=== PATIENT | male | born 1985 | race Caucasian/White ===

== ENCOUNTER 2019-11-11 13:09 | Emergency (ER) | payer SELFPAY ==
[2019-11-11 13:22] VITALS: BP 127/85; PULSE 77; RESP 16; TEMP 36.4; O2SAT 98; BMI 28.1
== END 2019-11-11 15:20 | disposition left against medical advice (07) ==
PROVIDERS: Emergency Provider Nurse Practitioner Family
DX: Z53.21 Procedure and treatment not carried out due to patient leaving prior to being seen by health care provider (principal)
CPT/HCPCS: 99281

== ENCOUNTER 2019-11-28 14:17 | Emergency (ER) | payer SELFPAY ==
[2019-11-28 14:27] VITALS: BP 145/109; PULSE 84; RESP 20; TEMP 36.7; O2SAT 94; BMI 32.3
--- NOTE | 2019-11-28 14:37 | W.ED.BACK ---
HPI - Back Pain/Injury General: Chief Complaint: Back Pain/Injury Stated Complaint: lower back pain Time Seen by Provider: 11/28/19 14:21 History of Present Illness: HPI Narrative: Patient is a 34-year-old male who comes to the ED with lower back pain that started 3 days ago. Patient denies any injury, trauma or accident to cause lower back pain. Patient was seen 2 days ago at [facility] and given a shot of a muscle relaxer and Toradol for pain. Patient states he still having lower back pain. Pain is described as being across the entire lower back and pain will radiate down left leg and into calf. He rates the pain a 10 out of 10. Denies any numbness or loss of sensation in the pelvic region, bladder or bowel incontinence. Associated symptoms: Deny abdominal pain, chills, dysuria, fatigue, fever(s), hematuria, nausea or vomiting Review of Systems Const: Denies: fever(s), chills or fatigue Eyes: Denies: change in vision or eye discomfort ENMT: Denies: throat pain, odynophagia, nasal discharge or nasal congestion Card: Denies: chest pain, palpitations, edema, swelling of feet/ankles, dyspnea on exertion or orthopnea Resp: Denies: dyspnea, productive cough or non-productive cough GI: Denies: abdominal pain, nausea, vomiting, diarrhea, constipation or hematochezia : Denies: flank pain, difficulty urinating, dysuria or hematuria Musc: Reports: back pain; Denies: neck pain or extremity swelling Skin/Breast: Denies: rash or new lesions Neuro: Denies: headache(s), numbness in extremities or weakness in extremities [facility] ED PFSH: Social History Smoking and tobacco status: never smoked Alcohol intake: never Physical Exam Const: COMMON NORMALS: patient oriented x3 HENMT: COMMON NORMALS: normocephalic HEAD & SCALP: normocephalic MOUTH: Normal oral and palatal mucosa present THROAT: posterior oropharynx normal and uvula midline Neck/C-Spine: COMMON NORMALS: supple GENERAL: Yes normal visual inspection Resp: COMMON NORMALS: normal respiratory effort, No retractions, No use of accessory muscles and clear to auscultation bilaterally AUSCULTATION: clear to auscultation bilaterally Cardio: COMMON NORMALS: regular rate, regular rhythm, S1 normal heart sound present, S2 normal heart sound present, No gallops present (Cardio), No clicks present (Cardio), No murmurs present (Cardio) and Peripheral pulses 2+ throughout RATE: regular rate RHYTHM: regular rhythm HEART SOUNDS: S1 normal heart sound present and S2 normal heart sound present PERIPHERAL PULSES: Peripheral pulses 2+ throughout GI: COMMON NORMALS: Normal to inspection, nondistended, normoactive bowel sounds present, Soft to palpation, non-tender and no masses PALPATION: Yes Soft to palpation : COMMON NORMALS: Yes no CVA tenderness BLADDER/KIDNEY EXAM: Yes no CVA tenderness Back/Pelvis: COMMON NORMALS: no CVA tenderness LUMBAR SPINE/LOWER BACK: Yes ROM limited (due to pain), Yes paraspinal muscle tenderness and Yes straight leg raise positive left OTHER: Patient's lower back muscles were hard and tense upon palpation. Extremity: COMMON NORMALS: normal to inspection and no pedal edema Neuro: COMMON NORMALS: patient oriented x3 and moves all extremities Skin: COMMON NORMALS: no rashes or lesions noted GENERAL SKIN EXAM: no rashes or lesions noted and dry skin Course Vital Signs: Vital signs: Vital Signs Temperature 98.0 F 11/28/19 14:27 Pulse Rate 70 11/28/19 15:47 Respiratory Rate 15 11/28/19 15:47 Blood Pressure 145/75 11/28/19 15:47 Pulse Oximetry 94 11/28/19 14:27 MDM - Back Pain/Injury MDM Narrative: Medical decision making narrative: pt is a 34 y/o male that comes to the ED with non traumatic Lumbar pain with pain radiating down into left leg. pt was given hydrocodone, prednisone and norflex while here in the ED. He was discharged with Lumbar radiculopathy and given a prescription for robaxin and medrol dose sonny. He was told to take ibuprofen as well for pain and inflammation. Order was placed with case management for a PCP referral. Pt understood and agreed with plan. Discharge Plan Discharge Patient Disposition: Home, Self-Care Clinical Impression: Lumbar radiculopathy Condition: Stable Prescriptions: New methocarbamol 750 mg tablet 750 mg PO Q8H Qty: 20 RF: 0 Medrol (Sonny) 4 mg tablets,dose pack See Rx Instructions .ROUTE .COMPLEX Qty: 21 RF: 0 ibuprofen 800 mg tablet 800 mg PO Q8H Qty: 30 RF: 0 No Action No Known Home Medications RF: 0 Discharge Orders: Discharge Order (Routine); Ordered 11/28/19 Ordered By: Kyler Velez Discharge Diet: Regular Discharge Activity: Increase activity as tolerated Patient Instructions: Acute Low Back Pain (ED), Lumbar Radiculopathy (ED) Activity Restrictions/Additional Instructions: To home and rest and apply cold pack or heat on lower back to help with symptoms. Stretch and massage lower back muscles out daily. Take full course of oral steroid as prescribed. Take muscle relaxer (methocarbamol) at night to help with pain and comfort while sleeping. Muscle relaxer can potentially cause some drowsiness so use caution if using it during the day. Take ibuprofen 800 mg 3 times a day to help with pain and inflammation. Case management or a primary care provider office should be contacting you within the next week to set up an appointment. You can always return to ED for reevaluation if symptoms worsen. 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
[2019-11-28] MEDS: predniSONE 20 mg Tablet 60 MG PO (15:23)
[2019-11-28] MEDS: orphenadrine 30 mg/mL Inj 2 mL 60 MG IM (15:23)
[2019-11-28] MEDS: HYDROcodone-acetaminophen 7.5-325 mg Tablet 1 TAB PO (15:24)
[2019-11-28 15:47] VITALS: BP 145/75; PULSE 70; RESP 15
--- NOTE | 2019-12-01 11:15 | DCPLANNER ---
manager custom had message to speak with patient about getting established with a primary care physician. manager custom called patient, he stated that he would like to be established with Agata in [place]. manager custom called the [facility] is [place], a follow up appointment is scheduled for Friday, December 06, 2019 at 2:00 with COMMERCIAL SINGERJuliann. manager custom called patient and informed patient of the scheduled appointment.
--- NOTE | 2019-12-28 13:40 | DCPLANNER ---
Patient did attend appointment scheduled for 12.03.19 with Agata in [place].
== END 2019-11-28 15:48 | disposition home or self-care (01) ==
PROVIDERS: Emergency Provider Physician Assistant
DX: M54.16 Radiculopathy, lumbar region (principal)
CPT/HCPCS: 12345; 96372; 99281; 99283; J2360; J7512

== ENCOUNTER 2020-01-12 19:13 | Emergency (ER) | payer SELFPAY ==
[2020-01-12 19:18] VITALS: BP 148/98; PULSE 82; RESP 18; TEMP 36.8; O2SAT 98; BMI 32.8
--- NOTE | 2020-01-12 20:31 | XRR_ITS ---
PROCEDURE INFORMATION: Exam: XR Spine, 1 view; Thoracic Exam date and time: 01/13/2020 9:54 AM Age: 34 years old Clinical indication: Patient status: Conscious; Pain: Outpatient Phlebotomist palpated a cyst on left lower back. C/O severe back pain; Patient HX: C/O severe back pain. Outpatient Phlebotomist found a cyst on back. Cannot lay on side for lateral views TECHNIQUE: Imaging protocol: XR of the spine, 1 view. Exam focused on the thoracic spine COMPARISON: No relevant prior studies available. FINDINGS: Vertebrae: Single anterior posterior view of the thoracic spine appears grossly normal on the submitted view. Lateral view not obtained. Soft tissues: Normal. XR/XR thoracic spine 1V [id number] IMPRESSION: Single anterior posterior view of the thoracic spine appears grossly normal on the submitted view. Lateral view not obtained.
--- NOTE | 2020-01-12 20:31 | XRR_ITS ---
PROCEDURE INFORMATION: Exam: XR Spine, 1 view; Lumbar Exam date and time: 01/13/2020 9:55 AM Age: 34 years old Clinical indication: Patient status: Conscious; Pain: Severe back pain-cyst found on back by crnp; Patient HX: Severe back pain x 48 hours. 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 Cannot lay on side for lateral views TECHNIQUE: Imaging protocol: XR of the spine, 1 view. Exam focused on the lumbar spine. COMPARISON: No relevant prior studies available. FINDINGS: Vertebrae: Single anterior posterior view of the lumbar spine. Grossly normal. Soft tissues: Normal. XR/XR lumbar spine 1V [id number] IMPRESSION: Single anterior posterior view of the lumbar spine. Grossly normal. Lateral view not obtained.
--- NOTE | 2020-01-12 21:07 | W.ED.BACK ---
HPI - Back Pain/Injury General: Chief Complaint: Back Pain/Injury Stated Complaint: back pain/cyst Time Seen by Provider: 01/12/20 20:55 Source: patient and family History of Present Illness: HPI Narrative: 34-year-old male complains of severe back pain for the last 48 hours, this is different from his usual back pain that he sees a physical therapist for. He went to his nurse practitioner today and she palpated a cyst on his left lower back and was sent to the emergency department. He has not had any spinal taps or injections in or near his back in the last year. Denies using IV drugs. Denies known history of MRSA. Complains of severe pain especially in certain positions dull and keeps him awake at night 10 out of 10 nothing seems to help. He does not think he is had a fever but he is sweating because the pain is so bad. No respiratory or GI symptoms. Timing: constant Associated symptoms: Deny abdominal pain, chills, change in bowel habits, fever(s), nausea or vomiting Review of Systems General: Reports: 10 or more systems reviewed and unremarkable except in HPI and below Const: Denies: fever(s) or chills Eyes: Denies: change in vision ENMT: Denies: throat pain Card: Denies: chest pain Resp: Denies: dyspnea GI: Denies: abdominal pain, nausea, vomiting or change in bowel habits Musc: Reports: back pain; Denies: muscle weakness Skin/Breast: Reports: other (subcutaneous cyst on lower back); Denies: rash Neuro: Denies: headache(s) Psych: Denies: hopelessness or suicidal ideation Endo: Denies: polyuria Jamel/Lymph: Denies: easy bruising or easy bleeding All/Imm: Denies: urticaria PFS ED PFSH: Social History Smoking and tobacco status: never smoked Alcohol intake: never Physical Exam Const: COMMON NORMALS: patient oriented x3, alert and well nourished GENERAL APPEARANCE: other (appears uncomfortable) OTHER: forehead diaphoretic HENMT: COMMON NORMALS: normocephalic and Normal external nose present HEAD & SCALP: normocephalic NOSE: Normal external nose present MOUTH: no trismus Eye: COMMON NORMALS: EOMs intact bilaterally and conjunctivae normal CONJUNCTIVA: Yes conjunctivae normal Neck/C-Spine: COMMON NORMALS: full ROM, no lymphadenopathy and supple CERVICAL SPINE: Yes cervical ROM normal Lymph: LYMPHATIC: no lymphadenopathy noted Resp: COMMON NORMALS: normal respiratory effort, No retractions, No use of accessory muscles and clear to auscultation bilaterally EFFORT & INSPECTION: Yes able to speak in complete sentences AUSCULTATION: clear to auscultation bilaterally Cardio: COMMON NORMALS: regular rate and regular rhythm RATE: regular rate RHYTHM: regular rhythm GI: COMMON NORMALS: Normal to inspection, nondistended, normoactive bowel sounds present, Soft to palpation, non-tender and no masses INSPECTION: Yes normal to inspection AUSCULTATION: Yes normoactive bowel sounds PALPATION: Yes Soft to palpation, No Guarding due to palpation present (GI) and No Rigid due to palpation Back/Pelvis: OTHER: Normal range of motion skin color normal no fluctuance. no erythema. palpable subqcyst/lipoma to left of midline Extremity: GENERAL: Yes normal exam except as noted Neuro: COMMON NORMALS: patient oriented x3 and CN's II-XII intact bilaterally SENSORIUM/ORIENTATION: Yes alert SPEECH: speech normal Psych: COMMON NORMALS: mental status grossly normal Skin: COMMON NORMALS: no rashes or lesions noted GENERAL SKIN EXAM: no rashes or lesions noted Course Vital Signs: Vital signs: Vital Signs Temperature 98.2 F 01/12/20 19:18 Pulse Rate 65 01/12/20 21:20 Respiratory Rate 17 01/12/20 21:33 Blood Pressure 150/92 01/12/20 21:20 Pulse Oximetry 98 01/12/20 21:33 MDM - Back Pain/Injury MDM Narrative: Medical decision making narrative: I explained to patient and fiance that the cyst is likey a lipoma and incidental his pain is coming from his L4-L5 narrowing. He has not been able to start physical therapy yet. Will start on steroids and prescribe a steroid Dosepak I also recommended an [id number] TENS unit and continue to pursue outpatient physical therapy. Lab Data: Attestation: I reviewed the patient's lab results. Labs: Lab Results 01/12/20 01/12/20 01/12/20 Range/Units 21:50 21:50 21:50 WBC 8.8 (4.0-10.0) 10^3/ uL RBC 4.47 (4.1-5.3) 10^6/u L Hgb 13.6 (11.7-16.6) g/dL Hct 41.5 L (42.0-52.0) % MCV 92.8 (80-94) fL MCH 30.4 (28.0-34.0) pg MCHC 32.8 (30.0-36.0) g/dL RDW 12.8 (12.1-15.1) % Plt Count 288 (130-400) 10^3/c mm MPV 9.9 (7.4-10.4) fL Neut % (Auto) 46.9 % Lymph % (Auto) 41.4 % [place] % (Auto) 8.9 % Eos % (Auto) 2.2 % Baso % (Auto) 0.5 % Neut # (Auto) 4.12 (1.8-7.7) 10^3/u L Lymph # (Auto) 3.6 (0.8-4.8) 10^3/u L [place] # (Auto) 0.8 (0.2-0.9) 10^3/u L Eos # (Auto) 0.2 (0.0-0.8) 10^3/u L Baso # (Auto) 0.0 (0.0-0.1) 10^3/u L Nucleated RBC % (a uto) 0 % Nucleated RBCs # 0.0 /100WBC Sodium 139 (136-145) mmol/L Potassium 3.9 (3.5-5.1) mmol/L Chloride 104 (98-107) mmol/L Carbon Dioxide 25 (22-29) mmol/L Anion Gap 13.9 (5-19) BUN 18 (6-20) mg/dL Creatinine 0.8 (0.7-1.2) mg/dL GFR Calculation 109.4 (90-130) mL/min Glucose 115 (65-115) mg/dL Calculated Osmolal ity 285 (285-295) mOsm/k g Lactic Acid 0.9 (0.5-2.2) mmol/L Calcium 9.1 (8.5-10.5) mg/dL Total Bilirubin 0.2 (0.15-1.2) mg/dL AST 27 (0-40) U/L ALT 26 (0-41) U/L Alkaline Phosphata se 78 (40-130) IU/L Total Protein 6.9 (6.6-8.7) g/dL Albumin 4.4 (3.5-5.2) g/dL Globulin 2.5 (1.3-4.6) g/dL Imaging Data^: ct l spine: Radiologist's impression: [place] [address] CT Scan Report Signed Patient: Willis Burt #: [id number] : 1985Acct#:[id number] Age/Sex: 34 / MADM Date: 01/12/20 Loc: ERRoom/Bed: Attending Dr: Ordering Provider/Ordering MD: Annette Kay MD Date of Service: 01/12/20 Procedure(s): CT lumbar spine wo con* [id number] Accession Number(s): [id number] Report Number: [id number] PROCEDURE INFORMATION: Exam: CT Lumbar Spine Without Contrast Exam date and time: 01/12/2020 9:25 PM Age: 34 years old Clinical indication: Low back pain; Additional info: Inflammation/asbscess? ? Left lower back TECHNIQUE: Imaging protocol: Computed tomography images of the lumbar spine without contrast. Radiation optimization: All CT scans at this facility use at least one of these dose optimization techniques: automated exposure control; mA and/or kV adjustment per patient size (includes targeted exams where dose is matched to clinical indication); or iterative reconstruction. COMPARISON: CR XR lumbar spine 2-3V* [id number] 01/12/2020 8:52 PM RADIATION DOSE METRICS: Total DLP (mGy-cm): 2428 FINDINGS: Vertebrae: Alignment is normal. Vertebral body height is maintained. There is no acute fracture. Discs/Spinal canal/Neural foramina: There is a generalized disc bulge at L4-L5 with a moderate sized superimposed left central and neural foraminal disc extrusion resulting in mild spinal canal stenosis and moderate left neuroforaminal stenosis. There is probable compression of the crossing left L5 nerve root in the subarticular space. Soft tissues: Paraspinal soft tissues are unremarkable. Visible intra-abdominal soft tissues are unremarkable. Other findings: There is no evidence of infection. CT/CT lumbar spine wo con* [id number] IMPRESSION: 1. L4-L5 left central/neural foraminal disc extrusion resulting in nerve root compression, neural foraminal and spinal canal stenosis. 2. No sign of infection. If there is high clinical suspicion of spinal infection, then MRI should be performed. Radiation Dose CTDIVOL = (mGy): DLP = 2428 (mGy-cm) Dictated By:Heraclio Curtis MD Signed By:Heraclio Curtisigned Date/Time:01/12/202219 Discharge Plan Discharge Patient Disposition: Home, Self-Care Clinical Impression: Lumbar radiculopathy Lipoma Qualifiers: Lipoma location: trunk Qualified Code(s): D17.1 - Benign lipomatous neoplasm of skin and subcutaneous tissue of trunk Condition: Stable Prescriptions: New diazepam [Valium] 5 mg tablet 5 mg PO TID PRN (Reason: spasm) Qty: 14 RF: 0 methylprednisolone [Medrol (Sonny)] 4 mg tablets,dose pack See Rx Instructions .ROUTE .COMPLEX Qty: 21 RF: 0 No Action tramadol 50 mg tablet 50 mg PO TID PRN (Reason: Pain) RF: 0 baclofen See Rx Instructions .ROUTE .COMPLEX RF: 0 naproxen See Rx Instructions .ROUTE .COMPLEX RF: 0 ibuprofen 200 mg Tablet 800 mg PO Q6H PRN (Reason: Pain) RF: 0 Referrals: Jeannette Hancock DO [Primary Care Provider] - Patient Instructions: Lumbar Radiculopathy (ED) Activity Restrictions/Additional Instructions: follow up with your pcp. Keep pursuing physical therapy. I also recommend an mmci-lqb-pedbcgd TENS unit. 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
--- NOTE | 2020-01-12 21:19 | CTR_ITS ---
PROCEDURE INFORMATION: Exam: CT Lumbar Spine Without Contrast Exam date and time: 01/12/2020 9:25 PM Age: 34 years old Clinical indication: Low back pain; Additional info: Inflammation/asbscess? ? Left lower back TECHNIQUE: Imaging protocol: Computed tomography images of the lumbar spine without contrast. Radiation optimization: All CT scans at this facility use at least one of these dose optimization techniques: automated exposure control; mA and/or kV adjustment per patient size (includes targeted exams where dose is matched to clinical indication); or iterative reconstruction. COMPARISON: CR XR lumbar spine 2-3V* [id number] 01/12/2020 8:52 PM RADIATION DOSE METRICS: Total DLP (mGy-cm): 2428 FINDINGS: Vertebrae: Alignment is normal. Vertebral body height is maintained. There is no acute fracture. Discs/Spinal canal/Neural foramina: There is a generalized disc bulge at L4-L5 with a moderate sized superimposed left central and neural foraminal disc extrusion resulting in mild spinal canal stenosis and moderate left neuroforaminal stenosis. There is probable compression of the crossing left L5 nerve root in the subarticular space. Soft tissues: Paraspinal soft tissues are unremarkable. Visible intra-abdominal soft tissues are unremarkable. Other findings: There is no evidence of infection. CT/CT lumbar spine wo con* [id number] IMPRESSION: 1. L4-L5 left central/neural foraminal disc extrusion resulting in nerve root compression, neural foraminal and spinal canal stenosis. 2. No sign of infection. If there is high clinical suspicion of spinal infection, then MRI should be performed. Radiation Dose CTDIVOL = (mGy): DLP = 2428 (mGy-cm)
[2020-01-12 21:20] VITALS: BP 150/92; PULSE 65; RESP 18; O2SAT 97
[2020-01-12 21:33] VITALS: RESP 17; O2SAT 98
[2020-01-12] MEDS: ondansetron 2 mg/ML SDV 2 mL 4 MG IVP (21:33)
[2020-01-12] MEDS: ketorolac 30 mg/mL INJ IVP (21:33)
[2020-01-12] MEDS: morphine 4 mg/mL SDV 1 mL IVP ×2 (21:33→22:32)
[2020-01-12 22:00] LABS: Basophils % 0.5 %; Eosinophils # 0.2 10^3/uL (0.0-0.8); Eosinophils % 2.2 %; Hematocrit 41.5 % (42.0-52.0); Hemoglobin 13.6 g/dL (11.7-16.6); Lymphocytes # 3.6 10^3/uL (0.8-4.8); Lymphocytes % 41.4 %; Mean Corpuscular HGB Conc 32.8 g/dL (30.0-36.0); Mean Corpuscular Hemoglobin 30.4 pg (28.0-34.0); Mean Corpuscular Volume 92.8 fL (80-94); Mean Platelet Volume 9.9 fL (7.4-10.4); Monocytes # 0.8 10^3/uL (0.2-0.9); Monocytes % 8.9 %; Neutrophils # 4.12 10^3/uL (1.8-7.7); Neutrophils % 46.9 %; Nucleated Red Blood Cells % 0 %; Platelet Count 288 10^3/cmm (130-400); Red Blood Count 4.47 10^6/uL (4.1-5.3); Red Cell Distribution Width 12.8 % (12.1-15.1); White Blood Count 8.8 10^3/uL (4.0-10.0)
[2020-01-12 22:21] LABS: Lactic Sepsis W/Reflex 0.9 mmol/L (0.5-2.2)
[2020-01-12 22:23] LABS: Alanine Aminotransferase 26 U/L (0-41); Albumin Level 4.4 g/dL (3.5-5.2); Alkaline Phosphatase 78 IU/L (40-130); Anion Gap 13.9 (5-19); Aspartate Amino Transferase 27 U/L (0-40); Blood Urea Nitrogen 18 mg/dL (6-20); Calcium 9.1 mg/dL (8.5-10.5); Carbon Dioxide 25 mmol/L (22-29); Chloride 104 mmol/L (98-107); Globulin 2.5 g/dL (1.3-4.6); Glomerular Filtration Rate 109.4 mL/min (90-130); Glucose 115 mg/dL (65-115); Osmolality Calculated 285 mOsm/kg (285-295); Potassium 3.9 mmol/L (3.5-5.1); Sodium 139 mmol/L (136-145); Total Bilirubin 0.2 mg/dL (0.15-1.2); Total Protein 6.9 g/dL (6.6-8.7)
[2020-01-12 22:32] VITALS: RESP 17; O2SAT 97
[2020-01-12] MEDS: dexamethasone 4 mg/mL INJ 8 MG IVP (22:35)
[2020-01-12] MEDS: diazePAM 5 mg Tablet 10 MG PO (22:39)
[2020-01-12] MEDS: HYDROcodone-acetaminophen 7.5-325 mg Tablet 1 TAB PO (23:26)
[2020-01-12 23:28] VITALS: BP 143/92; PULSE 83; RESP 18; O2SAT 96
[2020-01-12 23:35] VITALS: BP 143/92; PULSE 76; RESP 16; O2SAT 96
== END 2020-01-12 23:38 | disposition home or self-care (01) ==
PROVIDERS: Emergency Provider Emergency Medicine; PCP Family Medicine
DX: M54.16 Radiculopathy, lumbar region (principal); D17.1 Benign lipomatous neoplasm of skin and subcutaneous tissue of trunk
CPT/HCPCS: 12345; 36415; 72020; 72074; 72100; 72131; 80053; 83605; 85025; 87040; 96374; 96375; 96376; 99283; 99284; J1100; J1885; J2270; J2405

== ENCOUNTER 2020-01-13 08:05 | Emergency (ER) | payer SELFPAY ==
[2020-01-13 08:09] VITALS: BP 173/116; PULSE 92; RESP 18; TEMP 36.9; O2SAT 97; BMI 32.8
--- NOTE | 2020-01-13 08:35 | ED_ITS ---
HPI - Back Pain/Injury General: Chief Complaint: Back Pain/Injury Stated Complaint: back pain/seen 01/11 Time Seen by Provider: 01/13/20 08:08 History of Present Illness: HPI Narrative: Patient seen yesterday for same complaint. Patient is calm quiet and resting and was seensomeone his pain attention hollers out. When distracted she does not appear to be in severe pain. MD elicited complaint: back pain Review of Systems General: Reports: 10 or more systems reviewed and unremarkable except in HPI and below PFSH ED PFSH: Social History Smoking and tobacco status: never smoked Alcohol intake: never Physical Exam Narrative: EXAM NARRATIVE: Patient intermittently appears to be in severe pain alternating with no pain whatsoever Course Vital Signs: Vital signs: Vital Signs Temperature 98.4 F 01/13/20 08:09 Pulse Rate 92 01/13/20 08:09 Respiratory Rate 18 01/13/20 08:09 Blood Pressure 173/116 01/13/20 08:09 Pulse Oximetry 97 01/13/20 08:09 Discharge Plan Discharge Patient Disposition: Home, Self-Care Clinical Impression: Strain of lumbar region Qualifiers: Encounter type: initial encounter Qualified Code(s): S39.012A - Strain of muscle, fascia and tendon of lower back, initial encounter Condition: Stable Prescriptions: New tramadol 50 mg tablet 50 mg PO Q4H PRN (Reason: pain) Qty: 15 RF: 0 No Action tramadol 50 mg tablet 50 mg PO TID PRN (Reason: Pain) RF: 0 baclofen See Rx Instructions .ROUTE .COMPLEX RF: 0 naproxen See Rx Instructions .ROUTE .COMPLEX RF: 0 ibuprofen 200 mg Tablet 800 mg PO Q6H PRN (Reason: Pain) RF: 0 Valium 5 mg tablet 5 mg PO TID PRN (Reason: spasm) Qty: 14 RF: 0 Medrol (Sonny) 4 mg tablets,dose pack See Rx Instructions .ROUTE .COMPLEX Qty: 21 RF: 0 Discharge Orders: Discharge Order (Routine); Ordered 01/13/20 Ordered By: Regulo Buchanan Referrals: Jeannette Hancock DO [Primary Care Provider] - 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
[2020-01-13] MEDS: ketorolac 60 mg/2 mL INJ IM (08:53)
[2020-01-13] MEDS: orphenadrine 30 mg/mL Inj 2 mL 60 MG IM (08:53)
[2020-01-13 09:21] VITALS: BP 154/130; PULSE 93; RESP 18; O2SAT 98
== END 2020-01-13 09:22 | disposition home or self-care (01) ==
LOC: ER 17:10
PROVIDERS: Emergency Provider Family Medicine; PCP Family Medicine
DX: S39.012A Strain of muscle, fascia and tendon of lower back, initial encounter (principal); X58.XXXA Exposure to other specified factors, initial encounter
CPT/HCPCS: 12345; 96372; 99282; 99283; J1885; J2360

== ENCOUNTER 2020-01-14 02:53 | Emergency (ER) | payer SELFPAY ==
[2020-01-14 03:01] VITALS: BP 158/107; PULSE 90; RESP 18; TEMP 37; O2SAT 96; BMI 32.8
--- NOTE | 2020-01-14 03:11 | CTR_ITS ---
PROCEDURE INFORMATION: Exam: CT Lumbar Spine Without Contrast Exam date and time: 01/14/2020 3:13 AM Age: 34 years old Clinical indication: Low back pain; Additional info: Sciatica pain TECHNIQUE: Imaging protocol: Computed tomography images of the lumbar spine without contrast. Radiation optimization: All CT scans at this facility use at least one of these dose optimization techniques: automated exposure control; mA and/or kV adjustment per patient size (includes targeted exams where dose is matched to clinical indication); or iterative reconstruction. COMPARISON: CT lumbar spine wo con* [id number] 2020-01-12 21:46 RADIATION DOSE METRICS: Total DLP (mGy-cm): 2584.88 FINDINGS: Vertebrae: No acute vertebral fracture/subluxation. Discs/Spinal canal/Neural foramina: L4-L5 small to moderate disc extrusion causes moderate spinal, and severe left subarticular and moderate severe left foraminal stenosis. Additional degenerative disc and joint disease with multiple small disc bulges. Soft tissues: Unremarkable. CT/CT lumbar spine wo con* [id number] IMPRESSION: 1. L4-L5 small to moderate disc extrusion causes moderate spinal, and severe left subarticular and moderate severe left foraminal stenosis. Correlate for left L4 and L5 radiculopathy. 2. No acute vertebral fracture/subluxation. Radiation Dose CTDIVOL = (mGy): DLP = 2584.88 (mGy-cm)
--- NOTE | 2020-01-14 03:11 | CTR_ITS ---
PROCEDURE INFORMATION: Exam: CT Thoracic Spine Without Contrast Exam date and time: 01/14/2020 3:13 AM Age: 34 years old Clinical indication: Pain in thoracic spine; With radiculopathy; Bilateral; Additional info: Back pain TECHNIQUE: Imaging protocol: Computed tomography images of the thoracic spine without contrast. Radiation optimization: All CT scans at this facility use at least one of these dose optimization techniques: automated exposure control; mA and/or kV adjustment per patient size (includes targeted exams where dose is matched to clinical indication); or iterative reconstruction. COMPARISON: CR XR thoracic spine 1V [id number] 2020-01-12 20:52 RADIATION DOSE METRICS: Total DLP (mGy-cm): 2636.3 FINDINGS: Vertebrae: Scattered small degenerative endplate Schmorl's node cavities. Maintained vertebral body heights and alignments. Discs/Spinal canal/Neural foramina: No significant disc protrusion. No severe spinal canal stenosis. No significant neural foraminal narrowing. Soft tissues: Unremarkable. CT/CT thoracic spin wo con* [id number] IMPRESSION: No acute abnormality. Radiation Dose CTDIVOL = (mGy): DLP = 2636.3 (mGy-cm)
--- NOTE | 2020-01-14 03:19 | ED_ITS ---
HPI - Back Pain/Injury General: Chief Complaint: Back Pain/Injury Stated Complaint: BACK AND LEG PAIN Time Seen by Provider: 01/14/20 03:05 Source: patient and EMS Mode of arrival: EMS Limitations: no limitations History of Present Illness: HPI Narrative: Willis is 34-year-old male who comes in complaining of low back pain rating down his left leg. Patient states the pain is been going on for the past 3 days and is not getting any better. He denies any known injury. He denies any fevers, chills, loss of bowel or bladder control and he denies any saddle anesthesia. He denies any leg numbness or weakness. Patient states he was seen twice for this here and he is on steroids and Flexeril. He states he also takes ibuprofen for the pain. Patient states that it hurts more to walk. Of note throughout the history and exam the patient falls asleep when I talk with him. EMS did give the patient 4 mg of morphine in route. Associated symptoms: Deny abdominal pain, chills, difficulty walking, dysuria, fatigue, fever(s), hematuria, nausea, syncope, urinary urgency or vomiting Review of Systems Const: Denies: fever(s), chills, body aches, fatigue, malaise or diaphoresis Eyes: Denies: change in vision, blurry vision, blind spots, photophobia, eye discharge or eye redness ENMT: Denies: throat pain, odynophagia, hoarseness, swelling of lips/tongue, oral sores, ear or mastoid pain, ear discharge, change in hearing or nasal discharge Card: Denies: chest pain, palpitations, irregular heart rhythm, edema, lightheadedness, syncope, pre-syncope, dyspnea on exertion or orthopnea Resp: Denies: dyspnea, productive cough, non-productive cough, wheezing, hemoptysis or chest congestion GI: Denies: abdominal pain, nausea, vomiting, hematemesis, coffee ground emesis, heartburn, diarrhea, constipation, GI cramping, hematochezia or melena : Denies: flank pain, dysuria, urinary frequency, urinary urgency or hematuria Musc: Reports: back pain; Denies: neck pain, extremity pain, extremity swelling, joint pain, joint swelling, joint redness, joint warmth or joint stiffness Skin/Breast: Denies: rash, pruritus, erythema, skin tenderness or jaundice Neuro: Denies: headache(s), numbness in extremities, weakness in extremities, sensory changes, lack of coordination, difficulty walking, dizziness, vertigo, confusion, Slurred speech present or seizure-like activity Jamel/Lymph: Denies: easy bruising, easy bleeding, petechiae, purpura or enlarged lymph nodes All/Imm: Denies: urticaria, throat swelling, tongue swelling, facial swelling or acute wheezing PFSH ED PFSH: Medical History Degenerative disc disease Lipoma Social History Smoking and tobacco status: never smoked Alcohol intake: never Physical Exam Const: COMMON NORMALS: no acute distress, patient oriented x3, no limitations, healthy appearing and well nourished GENERAL APPEARANCE: cooperative, well kempt and well developed HENMT: COMMON NORMALS: normocephalic, atraumatic, external ears normal, EAC's normal and Normal external nose present HEAD & SCALP: normal to inspection, normocephalic and atraumatic FACE & SINUS: normal facial exam and face symmetric NOSE: Normal external nose present and Normal nares present EXTERNAL EAR: Yes external ears normal EXTERNAL AUDITORY CANAL: EAC's normal MOUTH: Normal oral and palatal mucosa present, lip normal and tongue normal Eye: COMMON NORMALS: Equal, round and reactive pupils present and conjunctivae normal GENERAL EYE: appearance normal, both eyes and all related structures ALIGNMENT: Yes alignment normal PERIORBITAL: periorbital findings normal EYELID: eyelids normal CONJUNCTIVA: Yes conjunctivae normal SCLERA: sclerae normal PUPIL: Yes Equal, round and reactive pupils present Neck/C-Spine: COMMON NORMALS: full ROM, no lymphadenopathy, supple, no meningeal signs and no JVD GENERAL: Yes normal visual inspection and Yes trachea midline Chest: COMMONS NORMALS: normal inspection of the chest and normal palpation of entire chest wall Resp: COMMON NORMALS: normal respiratory effort, No retractions and No use of accessory muscles EFFORT & INSPECTION: Yes able to speak in complete sentences and Yes symmetric chest movement AUSCULTATION: no crackles, no rales, no rhonchi and no wheezes Cardio: COMMON NORMALS: no JVD, regular rate, regular rhythm, S1 normal heart sound present and S2 normal heart sound present RATE: regular rate RHYTHM: regular rhythm HEART SOUNDS: S1 normal heart sound present, S2 normal heart sound present, no click, no gallops, no murmurs, no rubs and abnormal split S2 GI: COMMON NORMALS: Soft to palpation and No hepatosplenomegaly present PALPATION: Yes Soft to palpation, No Tenderness to palpation present (GI), No Guarding due to palpation present (GI), No Rigid due to palpation, Yes No hepatosplenomegaly present, No Hernia present, No Palpable mass present and No Pulsatile mass present : COMMON NORMALS: Yes no CVA tenderness BLADDER/KIDNEY EXAM: Yes no CVA tenderness Back/Pelvis: COMMON NORMALS: no CVA tenderness, thoracic and lumbar spine normal to inspection, no thoracic nor lumbar tenderness and thoraco-lumbar ROM normal Extremity: COMMON NORMALS: normal to inspection, full ROM, capillary refill normal, no joint enlargement, no clubbing, cyanosis or edema and no calf tenderness Neuro: COMMON NORMALS: patient oriented x3, CN's II-XII intact bilaterally, moves all extremities, no focal motor deficits and no sensory deficits noted MENINGEAL SIGNS: Yes no meningeal signs SPEECH: speech normal GAIT: Yes Shuffling gait present SENSORY EXAM: Yes Normal double simultaneous stimulation for sensation MOTOR EXAM: 5/5 motor strength present throughout DEEP TENDON REFLEXES: Right patellar reflex intensity grade: 2+, Left patellar reflex intensity grade: 2+, Right ankle reflex intensity grade: 2+ and Left ankle reflex intensity grade: 2+ Psych: COMMON NORMALS: mental status grossly normal, Normal thought process present, cooperative, normal affect, speech normal and activity/motor behavior normal APPEARANCE: Yes well kempt SPEECH: Yes normal speech THOUGHT PROCESS: Normal thought process present Skin: COMMON NORMALS: no rashes or lesions noted, turgor normal, no jaundice, no petechiae and no mottling GENERAL SKIN EXAM: no rashes or lesions noted and turgor normal Course Vital Signs: Vital signs: Vital Signs Temperature 98.6 F 01/14/20 03:01 Pulse Rate 90 01/14/20 03:01 Respiratory Rate 18 01/14/20 03:01 Blood Pressure 158/107 01/14/20 03:01 Pulse Oximetry 96 01/14/20 03:01 MDM - Back Pain/Injury MDM Narrative: Medical decision making narrative: Patient is declining any further evaluation and care. He is on Valium for muscle relaxer and he has Flexeril's as well. He is not on anything stronger for pain I believe his pain is severe. I see no sign of nerve root impingement causing any neurologic problems. His motor strength is normal and he is able to ambulate although with significant pain. There is no numbness, there is no paresthesias there is no sign of cauda equina syndrome. I see no evidence of saddle anesthesia or neuromuscular impairment from this disc herniation. He is asking for crutches which I will give him but I will give him a short course of Woodlyn for his pain. He understands to continue the Medrol Dosepak, he can take ibuprofen for pain but this could be part of the stomach as well. He will follow-up with Dr. Eldridge or the doctor of his choice for further evaluation of his herniated disc. Medical Records: Attestation: I reviewed the patient's medical records. Lab Data: Attestation: I reviewed the patient's lab results. Labs: Lab Results 01/14/20 01/14/20 Range/Units 04:25 04:25 WBC 16.3 H (4.0-10.0) 10^3/ uL RBC 4.45 (4.1-5.3) 10^6/u L Hgb 13.4 (11.7-16.6) g/dL Hct 41.1 L (42.0-52.0) % MCV 92.4 (80-94) fL MCH 30.1 (28.0-34.0) pg MCHC 32.6 (30.0-36.0) g/dL RDW 12.8 (12.1-15.1) % Plt Count 308 (130-400) 10^3/c mm MPV 9.8 (7.4-10.4) fL Neut % (Auto) 76.8 % Lymph % (Auto) 16.8 % [place] % (Auto) 5.8 % Eos % (Auto) 0.1 % Baso % (Auto) 0.1 % Neut # (Auto) 12.55 H (1.8-7.7) 10^3/u L Lymph # (Auto) 2.7 (0.8-4.8) 10^3/u L [place] # (Auto) 0.9 (0.2-0.9) 10^3/u L Eos # (Auto) 0.0 (0.0-0.8) 10^3/u L Baso # (Auto) 0.0 (0.0-0.1) 10^3/u L Nucleated RBC % (a uto) 0 % Nucleated RBCs # 0.0 /100WBC Sodium 134 L (136-145) mmol/L Potassium 3.9 (3.5-5.1) mmol/L Chloride 101 (98-107) mmol/L Carbon Dioxide 24 (22-29) mmol/L Anion Gap 12.9 (5-19) BUN 13 (6-20) mg/dL Creatinine 0.7 (0.7-1.2) mg/dL GFR Calculation 127.6 (90-130) mL/min Glucose 119 H (65-115) mg/dL Calculated Osmolal ity 275 L (285-295) mOsm/k g Calcium 9.0 (8.5-10.5) mg/dL Total Bilirubin 0.3 (0.15-1.2) mg/dL AST 28 (0-40) U/L ALT 31 (0-41) U/L Alkaline Phosphata se 60 (40-130) IU/L Total Protein 7.3 (6.6-8.7) g/dL Albumin 4.7 (3.5-5.2) g/dL Globulin 2.6 (1.3-4.6) g/dL Imaging Data^: CT Thoracic Spine: Radiologist's impression: [place] [address] CT Scan Report Signed Patient: Willis Burt Unit #: [id number] : 1985 Age/Sex: 34 / M ADM Date: 01/14/20 Loc: ER Room/Bed: Attending Dr: Ordering Provider/Ordering MD: Flor Lopez DO Date of Service: 01/14/20 Procedure(s): CT thoracic spin wo con* [id number] Accession Number(s): [id number] Report Number: [id number] PROCEDURE INFORMATION: Exam: CT Thoracic Spine Without Contrast Exam date and time: 01/14/2020 3:13 AM Age: 34 years old Clinical indication: Pain in thoracic spine; With radiculopathy; Bilateral; Additional info: Back pain TECHNIQUE: Imaging protocol: Computed tomography images of the thoracic spine without contrast. Radiation optimization: All CT scans at this facility use at least one of these dose optimization techniques: automated exposure control; mA and/or kV adjustment per patient size (includes targeted exams where dose is matched to clinical indication); or iterative reconstruction. COMPARISON: CR XR thoracic spine 1V [id number] 2020-01-12 20:52 RADIATION DOSE METRICS: Total DLP (mGy-cm): 2636.3 FINDINGS: Vertebrae: Scattered small degenerative endplate Schmorl's node cavities. Maintained vertebral body heights and alignments. Discs/Spinal canal/Neural foramina: No significant disc protrusion. No severe spinal canal stenosis. No significant neural foraminal narrowing. Soft tissues: Unremarkable. CT/CT thoracic spin wo con* [id number] IMPRESSION: No acute abnormality. Radiation Dose CTDIVOL = (mGy): DLP = 2636.3 (mGy-cm) Dictated By: Venancio Ennis MD Signed By: Venancio Ennis MD Signed Date/Time: 01/14/20453 DD/ 1 CT Lumbar Spine: Radiologist's impression: [place] [address] CT Scan Report Signed Patient: Willis Burt Unit #: [id number] : 1985 Age/Sex: 34 / M ADM Date: 01/14/20 Loc: ER Room/Bed: Attending Dr: Ordering Provider/Ordering MD: Flor Lopez DO Date of Service: 01/14/20 Procedure(s): CT lumbar spine wo con* [id number] Accession Number(s): [id number] Report Number: [id number] PROCEDURE INFORMATION: Exam: CT Lumbar Spine Without Contrast Exam date and time: 01/14/2020 3:13 AM Age: 34 years old Clinical indication: Low back pain; Additional info: Sciatica pain TECHNIQUE: Imaging protocol: Computed tomography images of the lumbar spine without contrast. Radiation optimization: All CT scans at this facility use at least one of these dose optimization techniques: automated exposure control; mA and/or kV adjustment per patient size (includes targeted exams where dose is matched to clinical indication); or iterative reconstruction. COMPARISON: CT lumbar spine wo con* [id number] 2020-01-12 21:46 RADIATION DOSE METRICS: Total DLP (mGy-cm): 2584.88 FINDINGS: Vertebrae: No acute vertebral fracture/subluxation. Discs/Spinal canal/Neural foramina: L4-L5 small to moderate disc extrusion causes moderate spinal, and severe left subarticular and moderate severe left foraminal stenosis. Additional degenerative disc and joint disease with multiple small disc bulges. Soft tissues: Unremarkable. CT/CT lumbar spine wo con* [id number] IMPRESSION: 1. L4-L5 small to moderate disc extrusion causes moderate spinal, and severe left subarticular and moderate severe left foraminal stenosis. Correlate for left L4 and L5 radiculopathy. 2. No acute vertebral fracture/subluxation. Radiation Dose CTDIVOL = (mGy): DLP = 2584.88 (mGy-cm) Dictated By: Venancio Ennis MD Signed By: Venancio Ennis MD Signed Date/Time: 01/14/20451 DD/ 0 Discharge Plan Discharge Patient Disposition: Home, Self-Care Clinical Impression: Sciatica Qualifiers: Laterality: left Qualified Code(s): M54.32 - Sciatica, left side Condition: Stable Prescriptions: New hydrocodone-acetaminophen [Woodlyn] 5-325 mg tablet 1 tab PO Q6H PRN (Reason: pain) 5 Days Qty: 20 RF: 0 No Action tramadol 50 mg tablet 50 mg PO TID PRN (Reason: Pain) RF: 0 baclofen See Rx Instructions .ROUTE .COMPLEX RF: 0 naproxen See Rx Instructions .ROUTE .COMPLEX RF: 0 ibuprofen 200 mg Tablet 800 mg PO Q6H PRN (Reason: Pain) RF: 0 Valium 5 mg tablet 5 mg PO TID PRN (Reason: spasm) Qty: 14 RF: 0 Medrol (Sonny) 4 mg tablets,dose pack See Rx Instructions .ROUTE .COMPLEX Qty: 21 RF: 0 tramadol 50 mg tablet 50 mg PO Q4H PRN (Reason: pain) Qty: 15 RF: 0 Referrals: Jose Eldridge MD [Physician] - 1-3 days Jeannette Hancock DO [Primary Care Provider] - 1-3 days Discharge Diet: Advance as tolerated Discharge Activity: Increase activity as tolerated Patient Instructions: Lumbar Disc Herniation (ED) Activity Restrictions/Additional Instructions: Please return to the ER immediately for any of the signs or symptoms listed on your discharge instruction sheets, worsening/changing of your symptoms, you are not getting better as quickly as expected, or for ANY other cause or concerns. Return to the ER immediately for any leg numbness, leg weakness, loss of bowel or bladder control, numbness in your groin, fever, or for any other cause for concern. Continue your Medrol Dosepak, take ibuprofen sparingly as both of these combined can be hard on your stomach. Take the Woodlyn as I have prescribed you an alternate muscle relaxers that you have been prescribed but do not take both together. Be certain to rest and follow-up with Dr. Eldridge or the neurosurgeon or orthopedic doctor of your choice for further evaluation and care. Stand Alone Forms: Work/School Release Coding Level of Care Code ED Clinical Support Associate for Chg Fwd Exam Comprehensive
[2020-01-14 04:33] LABS: Basophils % 0.1 %; Eosinophils % 0.1 %; Hematocrit 41.1 % (42.0-52.0); Hemoglobin 13.4 g/dL (11.7-16.6); Lymphocytes # 2.7 10^3/uL (0.8-4.8); Lymphocytes % 16.8 %; Mean Corpuscular HGB Conc 32.6 g/dL (30.0-36.0); Mean Corpuscular Hemoglobin 30.1 pg (28.0-34.0); Mean Corpuscular Volume 92.4 fL (80-94); Mean Platelet Volume 9.8 fL (7.4-10.4); Monocytes # 0.9 10^3/uL (0.2-0.9); Monocytes % 5.8 %; Neutrophils # 12.55 10^3/uL (1.8-7.7); Neutrophils % 76.8 %; Nucleated Red Blood Cells % 0 %; Platelet Count 308 10^3/cmm (130-400); Red Blood Count 4.45 10^6/uL (4.1-5.3); Red Cell Distribution Width 12.8 % (12.1-15.1); White Blood Count 16.3 10^3/uL (4.0-10.0)
[2020-01-14 04:48] LABS: Alanine Aminotransferase 31 U/L (0-41); Albumin Level 4.7 g/dL (3.5-5.2); Alkaline Phosphatase 60 IU/L (40-130); Anion Gap 12.9 (5-19); Aspartate Amino Transferase 28 U/L (0-40); Blood Urea Nitrogen 13 mg/dL (6-20); Carbon Dioxide 24 mmol/L (22-29); Chloride 101 mmol/L (98-107); Globulin 2.6 g/dL (1.3-4.6); Glomerular Filtration Rate 127.6 mL/min (90-130); Glucose 119 mg/dL (65-115); Osmolality Calculated 275 mOsm/kg (285-295); Potassium 3.9 mmol/L (3.5-5.1); Sodium 134 mmol/L (136-145); Total Bilirubin 0.3 mg/dL (0.15-1.2); Total Protein 7.3 g/dL (6.6-8.7)
[2020-01-14] MEDS: HYDROcodone-acetaminophen 5-325 mg Tablet 1 TAB PO (05:29)
[2020-01-14] MEDS: ketorolac 30 mg/mL INJ 10 MG IVP (05:30)
[2020-01-14 05:32] VITALS: BP 122/97; O2SAT 97
== END 2020-01-14 05:33 | disposition home or self-care (01) ==
PROVIDERS: Emergency Provider Emergency Medicine; PCP Family Medicine
DX: M54.32 Sciatica, left side (principal)
CPT/HCPCS: 12345; 72128; 72131; 80053; 85025; 96365; 96375; 99282; 99283; J0131; J1885; J2930

== ENCOUNTER 2020-12-09 11:33 | Emergency (ER) | payer SELFPAY ==
[2020-12-09 11:40] VITALS: BP 138/89; PULSE 75; RESP 18; TEMP 36.8; O2SAT 95; BMI 28.1
[2020-12-09 12:30] VITALS: BP 137/87; PULSE 70; RESP 16; O2SAT 96
[2020-12-09 12:37] LABS: Amphetamines Screen Urine Negative (Negative); Barbiturates Screen Urine Negative (Negative); Benzodiazepines Screen Urine Negative (Negative); Cocaine Screen Urine Negative (Negative); Opiate Screen Urine Negative (Negative); PCP Screen Urine Negative (Negative); THC Screen Urine Positive (Negative)
[2020-12-09] MEDS: lidocaine 2% viscous 15 ML, aluminum-mag hydrox-simethicon 30 ML, sucralfate oral liq 1 GM PO (12:39)
[2020-12-09 12:40] LABS: Basophils % 0.5 %; Eosinophils # 0.3 10^3/uL (0.0-0.8); Eosinophils % 3.5 %; Hematocrit 44.7 % (42.0-52.0); Hemoglobin 14.9 g/dL (11.7-16.6); Lymphocytes % 24.3 %; Mean Corpuscular HGB Conc 33.3 g/dL (30.0-36.0); Mean Corpuscular Hemoglobin 30.6 pg (28.0-34.0); Mean Corpuscular Volume 91.8 fL (80-94); Mean Platelet Volume 9.5 fL (7.4-10.4); Monocytes # 0.6 10^3/uL (0.2-0.9); Monocytes % 7.6 %; Neutrophils # 5.13 10^3/uL (1.8-7.7); Neutrophils % 63.9 %; Nucleated Red Blood Cells % 0 %; Platelet Count 290 10^3/cmm (130-400); Red Blood Count 4.87 10^6/uL (4.1-5.3); Red Cell Distribution Width 13.1 % (12.1-15.1)
[2020-12-09 13:00] LABS: Alanine Aminotransferase 27 U/L (0-41); Alkaline Phosphatase 80 IU/L (40-130); Anion Gap 16.9 (5-19); Aspartate Amino Transferase 27 U/L (0-40); Blood Urea Nitrogen 10 mg/dL (6-20); Calcium 9.3 mg/dL (8.5-10.5); Carbon Dioxide 25 mmol/L (22-29); Chloride 99 mmol/L (98-107); Globulin 2.5 g/dL (1.3-4.6); Glomerular Filtration Rate 126.9 mL/min (90-130); Glucose 112 mg/dL (65-115); Lipase 26 U/L (13-60); Osmolality Calculated 284 mOsm/kg (285-295); Potassium 3.9 mmol/L (3.5-5.1); Sodium 137 mmol/L (136-145); Total Bilirubin 0.8 mg/dL (0.15-1.2); Total Protein 7.5 g/dL (6.6-8.7)
[2020-12-09 13:02] LABS: Acetaminophen < 5.0 ug/mL (10-30); Alcohol Level < 10 mg/dL (0-10); Salicylate < 0.3 mg/dL (3-10)
--- NOTE | 2020-12-09 13:07 | CTR_ITS ---
PROCEDURE INFORMATION: Exam: CT Abdomen And Pelvis With Contrast Exam date and time: 12/09/2020 1:07 PM Age: 35 years old Clinical indication: Epigastric abdominal pain with nausea and vomiting. Prior appendectomy. History of alcohol abuse. TECHNIQUE: Imaging protocol: Computed tomography of the abdomen and pelvis with contrast. Radiation optimization: All CT scans at this facility use at least one of these dose optimization techniques: automated exposure control; mA and/or kV adjustment per patient size (includes targeted exams where dose is matched to clinical indication); or iterative reconstruction. Contrast material: OMNI 300; Contrast volume: 95 ml; Contrast route: INTRAVENOUS (IV); COMPARISON: CT abdomen pelvis w con* [id number] 08/12/2017 2:04 PM RADIATION DOSE METRICS: Total DLP (mGy-cm): 1690.6 FINDINGS: Lungs: There is minimal scarring or atelectasis in the lingula. No pericardial effusion. No hiatal hernia. Liver: The liver is enlarged measuring 17.7 cm. Gallbladder and bile ducts: The gallbladder is unremarkable. Pancreas: The pancreas is unremarkable. Spleen: The spleen is unremarkable. Adrenal glands: The adrenal glands are unremarkable. Kidneys and ureters: The kidneys are unremarkable. Stomach and bowel: There are numerous nondistended fluid-filled loops of small bowel. This is nonspecific but can be seen with enteritis. Appendix: The appendix has been removed. Intraperitoneal space: No free intraperitoneal air. Vasculature: No abdominal aortic aneurysm. Lymph nodes: No retroperitoneal lymphadenopathy. Urinary bladder: The bladder wall is thickened. Reproductive: The prostate measures 3.1 x 3.8 cm. Bones/joints: No acute fracture is seen. Soft tissues: Small fat containing right inguinal hernia. Tiny fat containing umbilical hernia. CT/CT abdomen pelvis w con* [id number] IMPRESSION: 1. There are numerous nondistended fluid-filled loops of small bowel. This is nonspecific but can be seen with enteritis. 2. The bladder wall is thickened. Correlate with urinalysis to assess for cystitis. 3. Hepatomegaly. Radiation Dose CTDIVOL = (mGy): DLP = 1690.6 (mGy-cm)
--- NOTE | 2020-12-09 13:18 | ED_ITS ---
HPI - Abdominal Pain General: Chief Complaint: Abdominal Pain Stated Complaint: n/v; minimal intake; abd pain; alcohol use Time Seen by Provider: 12/09/20 12:15 History of Present Illness: HPI narrative: The patient is a 35-year-old male alcoholic who comes to the ER complaining of upper abdominal pain. He says it has been going on for a week and hurts when he swallows anything. He continues to drink daily but says he has not been able to drink as much because of the pain. He has had similar type epigastric pain on and off in the past but it has never been this bad or lasted this long. He takes Tums with no effect. MD elicited complaint: abdominal pain Onset (ago): day(s) (7) Pain Consistency: constant Location: Epigastric Severity: moderate Quality: burning Radiation: other (lau in throat.) Exacerbating factors: eating and other (alcohol.) Relieving factors: nothing Associated Symptoms: Reports no associated symptoms; Denies GI cramping, diarrhea, nausea and vomiting Review of Systems General: Reports: 10 or more systems reviewed and unremarkable except in HPI and below Const: Denies: fatigue Eyes: Denies: change in vision, blurry vision or eye redness ENMT: Denies: throat pain, swelling of lips/tongue, ear or mastoid pain or nasal congestion Card: Denies: chest pain, palpitations, irregular heart rhythm, edema, dyspnea on exertion or orthopnea Resp: Denies: dyspnea, productive cough or non-productive cough GI: Reports: abdominal pain; Denies: nausea, vomiting, diarrhea or GI cramping : Denies: flank pain, urinary frequency or urinary urgency Musc: Denies: neck pain, back pain, extremity pain, joint pain, joint redness, limited range of motion or muscle weakness Skin/Breast: Denies: rash, pruritus, erythema, skin pain or skin tenderness Neuro: Denies: headache(s), numbness in extremities, weakness in extremities, sensory changes, difficulty walking, dizziness, confusion or Slurred speech present Psych: Denies: anxiety or depression Endo: Denies: polyuria All/Imm: Denies: urticaria, throat swelling or tongue swelling PFSH ED PFSH: Medical History (Updated 12/09/20 @ 14:45 by Sony Landers MD) Degenerative disc disease Lipoma Social History Smoking and tobacco status: never smoked Alcohol intake: never Physical Exam Const: COMMON NORMALS: no acute distress, average body habitus, patient oriented x3, no limitations, healthy appearing, alert and well nourished GENE RAL APPEARANCE: cooperative, comfortable, well kempt and well developed O RIENTATION/CONSCIOUSNESS: Yes awake, Yes oriented to person, Yes oriented to place and Yes oriented to time HENMT: COMMON NORMALS: normocephalic, external ears normal and Normal external nose present HEAD & SCALP: normal to inspection and normocephalic NOSE: Normal external nose present EXTERNAL EAR: Yes external ears normal MOUTH: Normal oral and palatal mucosa present THROAT: posterior oropharynx normal Eye: COMMON NORMALS: Equal, round and reactive pupils present and EOMs intact bilaterally GENERAL EYE: appearance normal, both eyes and all related structures PUPIL: Yes Equal, round and reactive pupils present Neck/C-Spine: COMMON NORMALS: full ROM, no lymphadenopathy, no meningeal signs and no JVD GENERAL: Yes normal visual inspection Lymph: LYMPHATIC: no lymphadenopathy noted Chest: COMMONS NORMALS: normal inspection of the chest and normal palpation of entire chest wall Resp: COMMON NORMALS: normal respiratory effort, No retractions, No use of accessory muscles, clear to auscultation bilaterally and percussion normal EFFORT & INSPECTION: Yes able to speak in complete sentences AUSCULTATION: clear to auscultation bilaterally PERCUSSION: percussion normal Cardio: COMMON NORMALS: no JVD, regular rate, regular rhythm, S1 normal heart sound present, S2 normal heart sound present and Peripheral pulses 2+ throughout RATE: regular rate RHYTHM: regular rhythm HEART SOUNDS: S1 normal heart sound present and S2 normal heart sound present PERIPHERAL PULSES: Peripheral pulses 2+ throughout GI: COMMON NORMALS: Normal to inspection, nondistended, normoactive bowel sounds present, Soft to palpation and no masses INSPECTION: Yes normal to inspection PALPATION: Yes Soft to palpation GI image (male): 1. epigastric tenderness. No rebound tenderness. soft. normal bs. : COMMON NORMALS: Yes no CVA tenderness BLADDER/KIDNEY EXAM: Yes no CVA tenderness Back/Pelvis: COMMON NORMALS: no CVA tenderness, thoracic and lumbar spine nor mal to inspection, no thoracic nor lumbar tenderness and thoraco-lumbar ROM normal Extremity: COMMON NORMALS: normal to inspection, full ROM, capillary refill normal, no joint enlargement and no pedal edema GENERAL: Yes normal exam except as noted Neuro: COMMON NORMALS: patient oriented x3, CN's II-XII intact bilaterally, moves all extremities, no focal motor deficits, no sensory deficits noted and gait normal SENSORIUM/ORIENTATION: Yes alert, Yes oriented to person, Yes oriented to place and Yes oriented to time MENINGEAL SIGNS: Yes no meningeal signs Psych: COMMON NORMALS: mental status grossly normal, Normal thought process present, cooperative, normal affect and speech normal APPEARANCE: Yes well kempt ATTITUDE: Yes calm SPEECH: Yes normal speech THOUGHT PROCESS: Normal thought process present Skin: COMMON NORMALS: no rashes or lesions noted GENERAL SKIN EXAM: no rashes or lesions noted Course Vital Signs: Vital signs: Vital Signs Temperature 98.3 F 12/09/20 11:40 Pulse Rate 70 12/09/20 12:30 Respiratory Rate 16 12/09/20 12:30 Blood Pressure 137/87 12/09/20 12:30 Pulse Oximetry 96 12/09/20 12:30 MDM - Abdominal Pain MDM Narrative: Medical decision making narrative: The patient had some improvement with the GI cocktail. Labs including lipase normal. CT shows po ssible enteritis and hepatomegaly. This is all likely from his alcoholism. I recommended he discontinue the use of alcohol, take omeprazole, follow-up with primary care physician next week to monitor improvement of his symptoms. I have also placed a case management referral to help him get an appointment with senior living sales counselor for possible EGD to check for ulcers. Return to the ER at anytime with worsening symptoms. I have discussed with him in detail discontinuing alcohol. He seems slightly resistant to change. Lab Data: Labs: Lab Results 12/09/20 12/09/20 12/09/20 Range/Units 12:15 12:23 12:23 WBC 8.0 (4.0-10.0) 10^3/ uL RBC 4.87 (4.1-5.3) 10^6/u L Hgb 14.9 (11.7-16.6) g/dL Hct 44.7 (42.0-52.0) % MCV 91.8 (80-94) fL MCH 30.6 (28.0-34.0) pg MCHC 33.3 (30.0-36.0) g/dL RDW 13.1 (12.1-15.1) % Plt Count 290 (130-400) 10^3/c mm MPV 9.5 (7.4-10.4) fL Neut % (Auto) 63.9 % Lymph % (Auto) 24.3 % Trego % (Auto) 7.6 % Eos % (Auto) 3.5 % Baso % (Auto) 0.5 % Neut # (Auto) 5.13 (1.8-7.7) 10^3/u L Lymph # (Auto) 2.0 (0.8-4.8) 10^3/u L Trego # (Auto) 0.6 (0.2-0.9) 10^3/u L Eos # (Auto) 0.3 (0.0-0.8) 10^3/u L Baso # (Auto) 0.0 (0.0-0.1) 10^3/u L Nucleated RBC % (a uto) 0 % Nucleated RBCs # 0.0 /100WBC Sodium 137 (136-145) mmol/L Potassium 3.9 (3.5-5.1) mmol/L Chloride 99 (98-107) mmol/L Carbon Dioxide 25 (22-29) mmol/L Anion Gap 16.9 (5-19) BUN 10 (6-20) mg/dL Creatinine 0.7 (0.7-1.2) mg/dL GFR Calculation 126.9 (90-130) mL/min Glucose 112 (65-115) mg/dL Calculated Osmolal ity 284 L (285-295) mOsm/k g Calcium 9.3 (8.5-10.5) mg/dL Total Bilirubin 0.8 (0.15-1.2) mg/dL AST 27 (0-40) U/L ALT 27 (0-41) U/L Alkaline Phosphata se 80 (40-130) IU/L Total Protein 7.5 (6.6-8.7) g/dL Albumin 5.0 (3.5-5.2) g/dL Globulin 2.5 (1.3-4.6) g/dL Lipase 26 (13-60) U/L Salicylates < 0.3 L (3-10) mg/dL Urine Opiates Scre en Negative (Negative) ng/mL Acetaminophen < 5.0 L (10-30) ug/mL Ur Barbiturates Sc reen Negative (Negative) ng/mL Ur Phencyclidine S crn Negative (Negative) ng/mL Ur Amphetamines Sc reen Negative (Negative) ng/mL U Benzodiazepines Scrn Negative (Negative) ng/mL Urine Cocaine Scre en Negative (Negative) ng/mL U Marijuana (THC) Screen Positive H (Negative) ng/mL Ethyl Alcohol < 10 (0-10) mg/dL Discharge Plan Discharge Patient Disposition: Home Clinical Impression: Gastritis, Alcoholism Condition: Stable Prescriptions: New omeprazole 40 mg capsule,delayed release(DR/EC) 40 mg PO DAILY Qty: 30 RF: 0 No Action baclofen See Rx Instructions .ROUTE .COMPLEX RF: 0 Discharge Orders: Discharge ED (Routine); Ordered 12/09/20 Ordered By: Sony Landers Referrals: Jeannette Hancock DO [Primary Care Provider] - Discharge Diet: Advance as tolerated Discharge Activity: Resume usual activity Patient Instructions: Gastritis (ED), Opioid Safety Activity Restrictions/Additional Instructions: You likely have gastritis. Please take the omeprazole daily for a month and discontinue drinking alcohol. It will take time for your stomach to repair the lining for the pain to go away. You may take Maalox, Pepto-Bismol, or other [id number] medications to help with the pain. I have placed a consult with our child support case officer to help you get an appointment with a senior living sales counselor as you may need a scope to check inside of your stomach to see if there are any ulcers there. Please follow-up with primary care physician next week to make sure your symptoms are improving as well. Return to the ER at anytime with worsening symptoms Coding Level of Care Code ED Sign Designer for Swati Fwd Exam Comprehensive
[2020-12-09] MEDS: iohexol 300 mg/mL 100 mL Btl IV (13:54)
[2020-12-09] MEDS: pantoprazole 40 mg SDV IVP (14:54)
--- NOTE | 2020-12-11 10:57 | DCPLANNER ---
manager clinical had message to schedule a follow up appointment for patient with general surgery for an EGD. manager clinical emailed patients information to Apollo Jackson at [facility] general surgery. Patients information will be printed and reviewed. Clinic will call patient with appointment information.
--- NOTE | 2020-12-12 13:37 | DCPLANNER ---
Patient has a follow up appointment scheduled for Friday, December 18, 2020 at 3:[address] Doyle at [facility] General Surgery. Clinic will call patient with appointment information.
--- NOTE | 2021-01-25 07:28 | DCPLANNER ---
Patient had a follow up appointment scheduled for 12.18.20 with general surgery - patient did not attend the appointment.
== END 2020-12-09 15:05 | disposition home or self-care (01) ==
PROVIDERS: Physician Assistant; Emergency Provider Family Medicine; PCP Family Medicine
DX: K29.20 Alcoholic gastritis without bleeding (principal); Z72.89 Other problems related to lifestyle
CPT/HCPCS: 74177; 80053; 80306; 80307; 83690; 85025; 96374; 99283; C9113; Q9967

== ENCOUNTER → 2023-06-09 08:34 | Outpatient (BNVA) | payer MEDICAID, SELFPAY | PROVIDERS: PCP Family Medicine; Visit Provider Specialist | DX: G56.01 Carpal tunnel syndrome, right upper limb (principal) | CPT/HCPCS: 73130 ==

== ENCOUNTER 2023-06-19 05:24 | Day surgery (SDC) | payer MEDICAID, SELFPAY ==
--- NOTE | 2023-06-18 11:11 | PC.NURSE ---
Pt voices he does still have GI issues since stopping his antibiotics. Educated to make sure he is washing hands.
[2023-06-19] VITALS (11 sets, daily range): BP systolic 99–138; BP diastolic 60–103; PULSE 75–88; RESP 14–17; TEMP 36.2–36.6; O2SAT 92–97
[2023-06-19] MEDS: acetaminophen 1,000 MG/100 ML PIGGYBACK 400 MG IV (06:13)
[2023-06-19] MEDS: CELEcoxib 200 mg Capsule 400 MG PO (06:14)
[2023-06-19] MEDS: sodium chloride 0.9% 1,000 ML 30 ML IV (06:14)
--- NOTE | 2023-06-19 07:05 | P.HPUD_ITS ---
Surgery/Procedure H&P Update DATE OF PROCEDURE: June 19, 2023 DATE H&P PERFORMED: 06/09/23 H&P UPDATE INFORMATION: I have reviewed H&P completed within last 30 days, I have examined patient prior to procedure, No changes to prior documentation and H&P is in [facility] EMR on date indicated PLANNED PROCEDURE: Operation Date: 06/19/23 07:00 Proposed Procedures p Right carpal tunnel release 01631 G56.01(Right) - Cheri Eckert MD Related Problem List Diagnoses (1) Right carpal tunnel syndrome:
[2023-06-19] MEDS: ceFAZolin 2,000 MG in sodium chloride 0.9% (plus) 50 ML 100 MG IV (07:11)
[2023-06-19] MEDS: BUPivacaine 0.5% INJ 30 mL XX (07:42)
--- NOTE | 2023-06-19 08:20 | PM.OP ---
Operative Report Date of procedure: June 19, 2023 Pre-op diagnosis: Right carpal tunnel syndrome Post-op diagnosis: Right carpal tunnel syndrome Post-op findings: Significant compression across the carpal canal Procedure done: Right carpal tunnel release Implants: None Surgeon: Cheri Eckert MD Bit Tripoler: None Anesthesia: General (Per LMA, ASA 2) Estimated blood loss (mL): 2 Tourniquet time (min): 22 (At 250 mmHg) IV fluids (mL): 600 Urine output (mL): 0 (No Levine) Complications: None Findings: Significant compression across the carpal canal Condition: stable Disposition: same day Brief History: This is a 37 year old male patient here today for surgical release of his right carpal tunnel syndrome. He does report a surgical history of a left carpal tunnel release. He reports right hand symptoms on going for several years, but it has been gradually worsening. He states he is right hand dominate. He reports a sharp shooting pain in his right hand. He states he experiences numbness and tingling sensations in all digits. He reports difficulty using his hand to write and tie his shoes. He states his right hand causes him pain and issues daily. Nerve conduction study demonstrated findings consistent with carpal tunnel syndrome. After discussion, the patient wished to proceed with carpal tunnel release, and risks and complications were discussed with him. Consents were signed in the office. Procedure: The patient was brought to the operating theater. General anesthesia per LMA was administered successfully, ASA 2. The tourniquet was elevated to 250 mmHg for a total tourniquet time of 22 minutes. The patient was also given Ancef 2 g preoperatively. The arm was then prepped and draped with DuraPrep in usual fashion with the arm draped free. A surgical pause was performed. At the time, the surgical pause, we confirmed the site and side of surgery. We also confirmed the patient's identity, appropriate and timely administration of preoperative antibiotics and preoperative surgical markings. An incision was then made along the thenar crease. The incision crossed the wrist joint in a curvilinear fashion. Dissection continued through skin and soft tissues using a scalpel. The palmaris longus was identified along with the transverse carpal ligament. Each of these was released carefully to avoid injury to the median nerve. We were able to dissect gently into the carpal canal which was noted to be quite tight with significant compression across the median nerve. The nerve was visualized and was an hourglass shape. After release, the canal was subsequently palpated to assure there was no bony encroachment upon the canal. There was a quite thickened fibrous tissue within the canal, and this was opened longitudinally as well. The canal was then palpated distally and proximally to assure that my small finger was passed easily without impingement. Finding this to be so, attention was directed to closure. The wound was irrigated with ropivacaine plain. It was then closed with 3-0 nylon in an interrupted mattress fashion. Sterile dressing was then placed consisting of Dermabond, OpSite, fluffed fluffs, sterile soft roll, and an Yosi wrap. The tourniquet was released after 22 minutes. There were no complications. There were no specimens. The procedure was well tolerated. Plan is the patient will be discharged home. Related Problem List Diagnoses (1) Right carpal tunnel syndrome:
--- NOTE | 2023-06-19 08:36 | ANES.PREANE2 ---
Pre-Anesthetic Assessment Height/Weight: Height 1.7 m Weight 107.048 kg Temp Pulse Resp BP Pulse Ox O2 Del Method O2 Flow Rate 97.2 F L 80 16 105/72 95 Simple Mask 6 06/19/23 08:07 06/19/23 08:12 06/19/23 08:12 06/19/23 08:12 06/19/23 08:12 06/19/23 08:12 06/19/23 08:12 Operation Date: 06/19/23 07:00 Proposed Procedures p Right carpal tunnel release 96599 G56.01(Right) - Cheri Eckert MD Familial anesthetic complications: none Was Beta Alyson taken within 24 hours: N/A Was Clonidine taken within 24 hours: N/A Last intake: Intake Last Liquid Date 06/18/23 Last Liquid Time 19:00 Last Solid Date 06/18/23 Last Solid Time 19:00 Social Tobacco and No alcohol Exam alert, oriented x 3, clear to auscultation bilaterally and regular rate & rhythm Airway Submandibular: within normal limits Cervical ROM: within normal limits Mallampati: Class II Dentition: chipped Pulmonary Chronic Obstructive Pulmonary Disease Metabolic Morbid Obesity Anesthetic Plan ASA status: 2 Anesthesia: Choice Medications/Allergies Home Medications Medication Instructions Recorded Confirmed Last Taken Type albuterol sulfate 90 mcg/actuation 1 inh inhalation DAILY 06/18/23 06/18/23 06/18/23 History aerosol inhaler (Ventolin HFA) hydrocodone 5 mg-acetaminophen 325 1 tab PO Q4H PRN pain 7 days #30 06/19/23 Unknown Rx mg tablet tabs Allergies Allergy/AdvReac Type Severity Reaction Status Date / Time No Known Allergies Allergy Verified 06/19/23 06:01 Current Medications Generic Name Dose Route Start Last Admin Trade Name Freq PRN Reason Stop Dose Admin Sodium Chloride 1,000 mls @ 30 mls/hr 06/19/23 06:00 06/19/23 06:14 Sodium Chloride 0.9% IV 06/20/23 05:59 30 mls/hr .Q24H ARLYN Administration PFSH Anesthesia Medical History Degenerative disc disease Lipoma Social History Smoking and tobacco/nicotine status: current every day tobacco/nicotine user Alcohol intake: current Substance/Drug Use: never Data Anesthesia Cardiac Studies: No Data to Display
[2023-06-19] MEDS: HYDROcodone-acetaminophen 5-325 mg Tablet 1 TAB PO (09:04)
--- NOTE | 2023-06-19 14:42 | ANE.PACU2 ---
Inpatient post-anesthesia follow up: Airway intact: Yes Vital signs: Temperature 97.5 F Pulse Rate 80 Respiratory Rate 16 Blood Pressure 128/88 Pulse Oximetry 95 Oxygen Delivery Me thod Room Air Oxygen Flow Rate 6 Fraction of Inspir ed Oxygen Hydration adequate: Yes Nausea and vomiting: No Pain level: 3 Mental status: Baseline
== END 2023-06-19 09:34 | disposition home or self-care (01) ==
PROVIDERS: PCP Family Medicine; Visit Provider Specialist
PROC: (CPT 64721; principal; 2023-06-19 07:00)
DX: G56.01 Carpal tunnel syndrome, right upper limb (principal); J44.9 Chronic obstructive pulmonary disease, unspecified; E66.01 Morbid (severe) obesity due to excess calories; Z68.37 Body mass index [BMI] 37.0-37.9, adult; M19.90 Unspecified osteoarthritis, unspecified site; F17.200 Nicotine dependence, unspecified, uncomplicated
CPT/HCPCS: 64721; J0131; J0690; J1100; J1885; J2250; J2405; J2704; J3010; J3490; J7030

== ENCOUNTER 2025-02-22 22:19 | Emergency (ER) | payer MEDICAID, SELFPAY ==
[2025-02-22 22:21] VITALS: BP 147/95; PULSE 99; RESP 16; TEMP 36.7; O2SAT 95; BMI 41.1
--- NOTE | 2025-02-22 22:24 | ECG_ITS ---
[facility] Test Date: 2025-02-22 Pat Name: Willis Burt Department: Room: Gender: Male Senior Integration Developer: : 1985 Requested By: Kate Kramer Order Number: [id number] Quinn MD: Osmany Johnson M.D. Measurements Intervals [place] Rate: 103 P: 59 OK: 139 QRS: 61 QRSD: 98 T: 31 QT: 266 QTc: 348 Interpretive Statements SINUS TACHYCARDIA NONSPECIFIC T-WAVE ABNORMALITY ABNORMAL RHYTHM ECG No previous ECG available for comparison Electronically Signed On 02-23-2025 22:30:47 CDT by Osmany Johnson M.D. [id number] [id number]
--- OUTSIDE RECORDS SUMMARY | 2025-02-22 22:26 | XMS_ITS | Clinical Summary ---
Author Organization [facility] Address [address] Attn: Epic Prelude ADT NIK DESAI [address] Care Team Providers Care Welfare Supervisor Name Role Phone Jeannette Hancock Primary Care Provider Allergies Active Allergy Reactions Criticality Noted Date Comments Gabapentin Other (See Comments) 10/20/2020 Mood Swings, Psychosis , Irritability Medications amoxicillin-cla vulanate (AUGMENTIN) 875-125 mg tabletIndicatio ns:Dental abscess Take 1 Tablet by mouth every 12 hours. 14 Tablet 4 Active albuterol sulfate HFA 90 mcg/actuation aerosol inhalerIndicati ons:Smokers' cough (CMS/HCC) Take 2 Puffs by inhalation every 6 hours as needed for Shortness of Breath. 8.5 Gram 3 5 Active Active Problems Problem Noted Date Diagnosed Date Carpal tunnel syndrome of left wrist 07/28/2020 Cigarette dependence 04/24/2015 Encounters Date Type Department Care Team Description 11/30/2024 External Device Data STL ABSTRACTION Provider, Abstract from Last 3 Months Immunizations Immunization Administration Dates Next Due (ADACEL/BOOSTRIX)(10 YR UP) TDAP VACCINE, 0.5ML, IM 08/13/2012 Family History Medical History Relation Name Comments Diabetes Father Eduardo Burt Cancer Maternal Aunt None Arthritis-osteo Mother Renetta Burt Hypertension Mother Renetta Burt Relation Name Status Comments Father Eduardo Burt Maternal Aunt None Mother Renetta Burt Social History Tobacco Use Types Packs/Day Years Used Date Smoking Tobacco: Former Cigarettes Q uit: 11/09/2019 Passive Smoke Exposure: Past Smokeless Tobacco: Former Tobacco Cessation:Counseling Given: No Alcohol Use Standard Drinks/Week Comments Not Currently 0 (1 standard drink = 0.6 oz pur e alcohol) Feeling Safe Answer Date Recorded Are you in a relationship wi th someone who hurts you emotionally and/or physically? 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 Gender Identity Not on file Sexual Orientation Not on file Last Filed Vital Signs Vital Sign Reading Time Taken Comments Blood Pressure 138/74 01/12/2024 3:13 PM CDT Pulse 85 01/12/2024 3:13 PM CDT Temperature 37.3 C (99.1 F) 01/12/2024 3:13 PM CDT Respiratory Rate 20 01/12/2024 3:13 PM CDT Oxygen Saturation 96% 01/12/2024 3:13 PM CDT Inhaled Oxygen Concentration - - Weight 112.7 kg (248 lb 6.4 oz) 01/12/2024 3:13 PM CDT Height 167.6 cm (5' 6 ) 01/12/2024 3:13 PM CDT Body Mass Index 40.09 01/12/2024 3:13 PM CDT Plan of Treatment Health Maintenance Due Date Last Done Comments HEPATITIS B VACCINES (1 of 3 - 19+ 3-dose series) 2002 Preventative Visit-Managed Medicaid 2002 HPV VACCINES (1 - 3-dose SCDM series) 2010 DTAP/TDAP/TD VACCINES (2 - Td or Tdap) 08/13/2022 COVID-19 Vaccine ( season) 2024, 07/24/2021 INFLUENZA VACCINE (#1) 2025 03/26/2022, 2021 Insurance [facility] [id number] * Guarantor: WILLIS BURT Account Type Relation to Patient Date of Phone Billing Address Personal/Family [address] [place] [id number] [employer] Commercial Care Teams Welfare Supervisor Relationship Specialty Start Date End Date Jeannette Hancock DO [address] [place] [address] PCP - General Family Practice 11/12/19
--- OUTSIDE RECORDS SUMMARY | 2025-02-22 22:26 | XMS_ITS | Clinical Summary ---
Author Organization [facility] Address [address] [place] [id number] Care Team Providers Care Supervisor Contact And Service Clerks Name Role Phone Jeannette Hancock Primary Care Provider Allergies Active Allergy Reactions Criticality Noted Date Comments Gabapentin Other (See Comments) 10/20/2020 Mood Swings Psychosis Irritability Medications traMADoL (ULTRAM) 50 mg tabletIndicatio ns:S/P carpal tunnel release,Left arm pain Take 1 Tablet (50 mg) by mouth every 6 hours as needed (POST OPERATIVE PAIN). 15 Tablet Active Active Problems Problem Noted Date Diagnosed Date Carpal tunnel syndrome of left wrist 07/28/2020 Cigarette dependence 04/24/2015 Immunizations Immunization Administration Dates Next Due (ADACEL/BOOSTRIX)(10 YR UP) TDAP VACCINE, 0.5ML, IM 08/13/2012 Family History Medical History Relation Name Comments Diabetes Father Eduardo Burt Cancer Maternal Aunt None Arthritis-osteo Mother Renetta Burt Hypertension Mother Renetta Burt Relation Name Status Comments Father Eduardo Burt Maternal Aunt None Mother Renetta Burt Social History Tobacco Use Types Packs/Day Years Used Date Smoking Tobacco: Former Cigarettes 0.5 23 0 11/08/1996 - 11/09/2019 Smokeless Tobacco: Former Chew Tobacco Cessation:Counseling Given: Yes Alcohol Use Standard Drinks/Week Comments Not Currently 0 (1 standard drink = 0.6 oz pur e alcohol) Sex and Gender Information Value Date Recorded Sex Assigned at Not on file 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 Gender Identity Not on file Sexual Orientation Not on file Occupation Industry Job Start Date Job End Date Not on file Not on file Not on file Not on file Last Filed Vital Signs Vital Sign Reading Time Taken Comments Blood Pressure 123/86 11/08/2020 2:07 PM CDT Pulse 100 11/08/2020 2:07 PM CDT Temperature 36.6 C (97.9 F) 10/03/2020 1:22 PM CDT Respiratory Rate 14 08/03/2020 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 Oxygen Saturation 95% 10/03/2020 1:22 PM CDT Inhaled Oxygen Concentration - - Weight 92.5 kg (204 lb) 11/08/2020 2:07 PM CDT Height 170.2 cm (5' 7 ) 11/08/2020 2:07 PM CDT Body Mass Index 31.95 11/08/2020 2:07 PM CDT Plan of Treatment Health Maintenance Due Date Last Done Comments HEPATITIS B VACCINES (1 of 3 - 19+ 3-dose series) 2002 HPV VACCINES (1 - 3-dose SCDM series) 2010 DTAP/TDAP/TD VACCINES (3 - Td or Tdap) 08/13/2022, 12/05/2010 INFLUENZA VACCINE (#1) 2025 Insurance [employer] Commercial Advance Directives For more information, please contact: [phone] * Full Code (Latest Code Status on File) Date Activated Date Inactivated Comments 08/03/2020 6:07 AM 08/03/2020 10:54 AM Care Teams Supervisor Contact And Service Clerks Relationship Specialty Start Date End Date Jeannette Hancock DO [address] [place] [address] PCP - General Family Practice 11/12/19
== END 2025-02-23 00:48 | disposition left against medical advice (07) ==
LOC: ER 22:25
PROVIDERS: Emergency Provider Family Medicine; PCP Family Medicine
DX: Z53.21 Procedure and treatment not carried out due to patient leaving prior to being seen by health care provider (principal); R00.0 Tachycardia, unspecified; R94.31 Abnormal electrocardiogram [ECG] [EKG]
CPT/HCPCS: 93005